=== PATIENT | female | born 1960 | race Caucasian/White ===

== ENCOUNTER 2021-08-26 23:18 | Emergency (ER) | payer MEDICAID ==
[~2021-08-26] VITALS: Ht 167.6 cm; Wt 66.7 kg
[2021-08-27] MEDS ORDERED: levETIRAcetam 500 MG TAB PO ONE (02:00)
[2021-08-27 05:25] VITALS: BP 137/92
[2021-08-28] MEDS ORDERED: IBUP800T27 PO (12:35)
[2021-08-28] MEDS ORDERED: CLON1TAB PO ×2 (12:36→12:37)
== END 2021-08-27 05:52 | disposition home or self-care (01) ==
LOC: ER 23:22
DX: S19.9XXA Unspecified injury of neck, initial encounter (principal); G40.802 Other epilepsy, not intractable, without status epilepticus; Z88.8 Allergy status to other drugs, medicaments and biological substances; W18.39XA Other fall on same level, initial encounter; Y93.89 Activity, other specified; Y92.89 Other specified places as the place of occurrence of the external cause; Y99.8 Other external cause status
CPT/HCPCS: 72125

== ENCOUNTER 2021-08-28 09:53 | Emergency (ER) | payer MEDICAID ==
[~2021-08-28] VITALS: Ht 165.1 cm; Wt 67.1 kg
[2021-08-28 10:12] VITALS: BP 121/74
[2021-08-28 12:08] LABS: Urine Bacteria NONE SEEN /hpf (None Seen); Urine Blood Negative /uL (Negative); Urine Specific Gravity 1.004 (1.001-1.035); Urine WBC 2 /hpf (0 - 5)
[2021-08-28] MEDS ORDERED: KETOROLAC TROMETH 60MG/2ML VIAL IM ONE (12:15)
[2021-08-28] MEDS ORDERED: clonazePAM 0.5 MG TAB PO ONE (12:15)
[2021-08-28] MEDS ORDERED: IBUP800T27 PO (12:35)
[2021-08-28] MEDS ORDERED: CLON1TAB PO ×2 (12:36→12:37)
== END 2021-08-28 12:44 | disposition home or self-care (01) ==
LOC: EDBD 09:53 → ER 09:53
DX: S22.079A Unspecified fracture of T9-T10 vertebra, initial encounter for closed fracture (principal); I10 Essential (primary) hypertension; Z86.73 Personal history of transient ischemic attack (TIA), and cerebral infarction without residual deficits; W01.0XXA Fall on same level from slipping, tripping and stumbling without subsequent striking against object, initial encounter; Y93.89 Activity, other specified; Y92.89 Other specified places as the place of occurrence of the external cause; Y99.8 Other external cause status
CPT/HCPCS: 72070; 81001; 93005; 96372; 99285; J1885